=== PATIENT | male | born 1975 | race Caucasian/White ===

== ENCOUNTER 2022-08-31 10:33 | Outpatient (CLI) | payer OTHER, SELFPAY ==
--- NOTE | 2022-08-31 10:45 | CRLHL7_ITS ---
For Patients: As a result of the Century Cures Act, medical imaging exams and procedure reports are released immediately into your electronic medical record. You may view this report before your referring provider. If you have questions, please contact your health care provider. CLINICAL HISTORY: Renal mass follow-up COMPARISON: MRI 08/06/2022, CT 07/30/2022 TECHNIQUE: Yun scale and color Doppler images were acquired of the kidneys. FINDINGS: Solid slightly heterogeneous and partially exophytic mass upper pole right kidney is again noted and unchanged compared to the prior studies, measuring 3.4 x 2.9 x 2.8 cm. There is no evidence of hydronephrosis or calculus. The right kidney measures 11.4cm in length and the left kidney measures 11.1cm in length. The renal cortex appears of normal thickness. Color Doppler flow to the kidneys is unremarkable. IMPRESSION: Stable appearance of the suspicious solid mass arising from the upper pole of the right kidney. Dictated by Darwin Gibson MD @ 08/31/2022 11:33:58 AM (Electronically Signed)
== END 2022-08-31 10:34 | disposition home or self-care (01) ==
LOC: US 10:34
PROVIDERS: PCP Family Medicine; Visit Provider Urology
DX: N28.89 Other specified disorders of kidney and ureter (principal)
CPT/HCPCS: 76775